=== PATIENT | male | born 1965 | race Caucasian/White ===

== ENCOUNTER 2022-09-12 13:59 | Outpatient (CLI) | payer MEDICARE, OTHER ==
[2022-09-12 14:30] LABS: Hemoglobin 14.3 g/dL (13.5-17.5); Mean Corpuscular HGB CONC 32.4 g/dL (32.0-36.0); Mean Corpuscular Hemoglobin 27.4 pg (27.0-33.0); Mean Corpuscular Volume 84.8 fl (81.2-95.1); Mean Platelet Volume 10.7 fl (7.4-10.4); Platelet Count 179 10x3/uL (150-450); RBC Distribution Width 14.1 % (11.5-14.5); Red Blood Cell (RBC) Count 5.21 10x6/uL (4.32-5.72); White Blood Cell (WBC) Count 11.6 10x3/uL (3.5-10.5)
[2022-09-12 14:43] LABS: Anion Gap 15 mmol/L (10-20); BUN (Urea Nitrogen) 17 mg/dL (8.4-25.7); Calc. Creatinine Clearance 0 mL/min (70-130); Calcium 8.7 mg/dL (7.8-10.44); Carbon Dioxide 16 mmol/L (22-29); Chloride 106 mmol/L (98-107); Estimated GFR 57; Glucose 189 mg/dL (70-105); Potassium 4.2 mmol/L (3.5-5.1); Sodium 133 mmol/L (136-145)
== END 2022-09-12 14:00 | disposition home or self-care (01) ==
LOC: LABBT 13:59
PROVIDERS: ATTEND Thoracic Surgery (Cardiothoracic Vascular Surgery)
DX: Z01.812 Encounter for preprocedural laboratory examination (principal); I73.9 Peripheral vascular disease, unspecified
CPT/HCPCS: 80048; 85027

== ENCOUNTER 2022-09-13 05:46 | Day surgery (SDC) | payer OTHER, MEDICARE ==
[2022-09-11 15:18] VITALS: BMI 24.8
[2022-09-13] MEDS ORDERED: Lidocaine 1% (PF) 30 ML VIAL ONE (06:22)
[2022-09-13] MEDS ORDERED: Heparin 10,000 UNITS/ 10 ML VIAL ONE (06:22)
[2022-09-13] MEDS ORDERED: Midazolam HCl 2 mg/2 ml Vial ONE ×2 (06:57→07:09)
[2022-09-13] MEDS ORDERED: FENTANYL 50 MCG/ML 1 ML VIAL ONE ×3 (06:57→07:39)
[2022-09-13] MEDS ORDERED: hydrALAZINE 20 MG/ML VIAL ONE ×2 (08:17→09:46)
== END 2022-09-13 10:58 | disposition home or self-care (01) ==
LOC: SDC 05:46
PROVIDERS: ATTEND Thoracic Surgery (Cardiothoracic Vascular Surgery)
PROC: 047N3Z1 Dilation of Left Popliteal Artery using Drug-Coated Balloon, Percutaneous Approach (ICD-10-PCS; principal; 2022-09-13)
PROC: 047L3D1 Dilation of Left Femoral Artery with Intraluminal Device, using Drug-Coated Balloon, Percutaneous Approach (ICD-10-PCS; principal; 2022-09-13)
PROC: 047D3DZ Dilation of Left Common Iliac Artery with Intraluminal Device, Percutaneous Approach (ICD-10-PCS; principal; 2022-09-13)
DX: E11.51 Type 2 diabetes mellitus with diabetic peripheral angiopathy without gangrene (principal); I25.118 Atherosclerotic heart disease of native coronary artery with other forms of angina pectoris; I10 Essential (primary) hypertension; E78.2 Mixed hyperlipidemia; E11.42 Type 2 diabetes mellitus with diabetic polyneuropathy; K21.9 Gastro-esophageal reflux disease without esophagitis; I25.2 Old myocardial infarction; F17.210 Nicotine dependence, cigarettes, uncomplicated; Z85.048 Personal history of other malignant neoplasm of rectum, rectosigmoid junction, and anus; Z79.02 Long term (current) use of antithrombotics/antiplatelets; Z79.4 Long term (current) use of insulin; Z79.84 Long term (current) use of oral hypoglycemic drugs; Z79.85 Long-term (current) use of injectable non-insulin antidiabetic drugs; Z79.899 Other long term (current) drug therapy; Z88.6 Allergy status to analgesic agent; Z95.5 Presence of coronary angioplasty implant and graft
CPT/HCPCS: 36247; 37221; 37226; 85347; 99152; 99153; C1725; C1760; C1769; C1876; C1894; J0360; J1644; J2001; J2250; J3010

== ENCOUNTER 2022-10-18 06:05 | Day surgery (SDC) | payer OTHER, MEDICARE ==
[2022-10-15 14:29] VITALS: BMI 25.1
[2022-10-18] MEDS ORDERED: Lidocaine 1% (PF) 30 ML VIAL ONE (06:42)
[2022-10-18] MEDS ORDERED: Midazolam HCl 2 mg/2 ml Vial ONE ×2 (06:44→07:26)
[2022-10-18] MEDS ORDERED: fentaNYL 50 mcg/mL 1 mL Vial ONE ×3 (06:45→07:30)
[2022-10-18] MEDS ORDERED: Heparin 10,000 UNITS/ 10 ML VIAL ONE (07:11)
[2022-10-18] MEDS ORDERED: Iopamidol 370 76% 100 ML VIAL ONE (12:57)
== END 2022-10-18 10:19 | disposition home or self-care (01) ==
LOC: SDC 06:05
PROVIDERS: ATTEND Thoracic Surgery (Cardiothoracic Vascular Surgery)
PROC: 047K3Z1 Dilation of Right Femoral Artery using Drug-Coated Balloon, Percutaneous Approach (ICD-10-PCS; principal; 2022-10-18)
DX: E11.51 Type 2 diabetes mellitus with diabetic peripheral angiopathy without gangrene (principal); I70.211 Atherosclerosis of native arteries of extremities with intermittent claudication, right leg; I25.118 Atherosclerotic heart disease of native coronary artery with other forms of angina pectoris; I10 Essential (primary) hypertension; E78.2 Mixed hyperlipidemia; K21.9 Gastro-esophageal reflux disease without esophagitis; E11.42 Type 2 diabetes mellitus with diabetic polyneuropathy; I25.2 Old myocardial infarction; Z85.048 Personal history of other malignant neoplasm of rectum, rectosigmoid junction, and anus; Z87.891 Personal history of nicotine dependence; Z79.02 Long term (current) use of antithrombotics/antiplatelets; Z79.4 Long term (current) use of insulin; Z79.84 Long term (current) use of oral hypoglycemic drugs; Z79.85 Long-term (current) use of injectable non-insulin antidiabetic drugs; Z79.899 Other long term (current) drug therapy; Z88.6 Allergy status to analgesic agent; Z95.5 Presence of coronary angioplasty implant and graft
CPT/HCPCS: 37224; 75710; 99152; 99153; C1725; C1760; C1769; C1887; C1894; J1644; J2001; J2250; J3010; Q9967